=== PATIENT | female | born 1995 | race Two or more races ===

== ENCOUNTER 2016-06-16 19:14 | Outpatient (CLI) | payer OTHER ==
[~2016-06-16] VITALS: Ht 152.4 cm; Wt 80.9 kg
== END 2016-06-16 20:05 | disposition home or self-care (01) ==
LOC: LDOP 19:14
PROVIDERS: ATTEND Obstetrics & Gynecology
DX: O46.93 Antepartum hemorrhage, unspecified, third trimester (principal); O62.9 Abnormality of forces of labor, unspecified; Z3A.39 39 weeks gestation of pregnancy
CPT/HCPCS: 59025; 99201; G0463

== ENCOUNTER → 2016-07-02 | Outpatient (CLI) | payer OTHER ==
[~2016-07-02] MED LIST: DOCU-30 PO; IBUP-1222 PO; OXYC-302 PO
== END | disposition home or self-care (01) ==
LOC: WOUND 13:00
PROVIDERS: ATTEND Internal Medicine
DX: T81.31XD Disruption of external operation (surgical) wound, not elsewhere classified, subsequent encounter (principal); Y83.8 Other surgical procedures as the cause of abnormal reaction of the patient, or of later complication, without mention of misadventure at the time of the procedure
CPT/HCPCS: 99215

== ENCOUNTER → 2016-07-16 | Outpatient (CLI) | payer OTHER | END | disposition home or self-care (01) | LOC: WOUND 08:30 | PROVIDERS: ATTEND Internal Medicine | DX: T81.31XD Disruption of external operation (surgical) wound, not elsewhere classified, subsequent encounter (principal); Y83.8 Other surgical procedures as the cause of abnormal reaction of the patient, or of later complication, without mention of misadventure at the time of the procedure | CPT/HCPCS: 99213 ==

== ENCOUNTER → 2016-07-23 | Outpatient (CLI) | payer OTHER | LOC: WOUND 08:55 | PROVIDERS: ATTEND Internal Medicine | DX: O90.0 Disruption of cesarean delivery wound (principal); T81.31XD Disruption of external operation (surgical) wound, not elsewhere classified, subsequent encounter; Y83.8 Other surgical procedures as the cause of abnormal reaction of the patient, or of later complication, without mention of misadventure at the time of the procedure | CPT/HCPCS: 97597 ==

== ENCOUNTER 2017-06-16 06:02 | Inpatient (IN) | payer OTHER ==
[~2017-06-16] VITALS: Ht 152.4 cm; Wt 81.0 kg
[~2017-06-16 06:02] MED LIST changes: +DOCU-131 PO; -DOCU-30 PO
[2017-06-16] MEDS ORDERED: NEWBORN KIT ONE (06:05)
[2017-06-16] MEDS ORDERED: SODIUM CITRATE/CITRIC ACID 30 ML UDC ONE (06:06)
[2017-06-16] MEDS ORDERED: METOCLOPRAMIDE 5 MG/ML, 2ML ONE (06:06)
[2017-06-16] MEDS: LACTATED RINGERS 1,000 ML IV SCH ×10 (06:30→22:30)
[2017-06-16] MEDS ORDERED: METOCLOPRAMIDE 5 MG/ML, 2ML IV ONE (06:30)
[2017-06-16] MEDS ORDERED: LACTATED RINGERS 1,000 ML IVBOLUS ONE (06:30)
[2017-06-16] MEDS ORDERED: SODIUM CITRATE/CITRIC ACID 30 ML UDC PO ONE (06:30)
[2017-06-16] MEDS ORDERED: KETOROLAC 30 MG/1 ML ONE (07:15)
[2017-06-16] MEDS ORDERED: CEFAZOLIN 1,000 MG ONE (07:15)
[2017-06-16] MEDS ORDERED: DEXAMETHASONE 4 MG/ML, 1ML ONE (07:15)
[2017-06-16] MEDS ORDERED: OXYTOCIN 10 UNITS/ML, 1ML ONE (07:15)
[2017-06-16] MEDS ORDERED: FENTANYL PF 100 MCG/2ML ONE (07:15)
[2017-06-16] MEDS ORDERED: EPHEDRINE 50 MG/ML, 1ML ONE (07:15)
[2017-06-16] MEDS ORDERED: ONDANSETRON 2MG/ML, 2ML ONE (07:15)
[2017-06-16] MEDS ORDERED: PHENYLEPHRINE 10 MG/ML ONE (07:15)
[2017-06-16 07:18] LABS: BASOPHILS # (AUTO) 0.03 x10^3/uL (0-0.1); BASOPHILS % (AUTO) 0 % (0-1); EOSINOPHILS # (AUTO) 0.17 x10^3/uL (0-0.4); EOSINOPHILS % (AUTO) 2 % (1-7); LYMPHOCYTES # (AUTO) 2.76 x10^3/uL (1-3.4); LYMPHOCYTES % (AUTO) 30 % (22-44); MD SCAN; MEAN CORPUSCULAR HEMOGLOBIN 26.9 pg (27.0-34.8); MEAN CORPUSCULAR HGB CONC 33.5 g/dL (32.4-35.8); MEAN CORPUSCULAR VOLUME 80.4 fL (80-100); MEAN PLATELET VOLUME 10.1 fL (7.4-10.4); MONOCYTES # (AUTO) 0.63 x10^3/uL (0.2-0.8); MONOCYTES % (AUTO) 7 % (2-9); NEUTROPHILS # (AUTO) 5.61 x10^3/uL (1.8-6.8); NEUTROPHILS % (AUTO) 61 % (42-75); PLATELET COUNT 159 x10^3/uL (130-400); RED CELL DISTRIBUTION WIDTH 17.2 % (9.6-15.2)
[2017-06-16] MEDS ORDERED: EPHEDRINE 50 MG/ML, 1ML IVPush PRN (07:30)
[2017-06-16] MEDS ORDERED: FENTANYL PF 100 MCG/2ML IV PRN (07:30)
[2017-06-16] MEDS ORDERED: OXYcodone 5 MG/5 ML ORAL.SOL UDC PO PRN (07:30)
[2017-06-16] MEDS ORDERED: ALBUTEROL SULFATE 2.5 MG/3 ML NPPB PRN (07:30)
[2017-06-16] MEDS ORDERED: HYDROcodone/APAP 7.5-325MG/15ML UDC PO PRN (07:30)
[2017-06-16] MEDS ORDERED: MEPERIDINE/PF 25MG/0.5ML IVPush PRN (07:30)
[2017-06-16] MEDS ORDERED: PROMETHAZINE 25 MG/ML, 1ML IV PRN (07:30)
[2017-06-16] MEDS ORDERED: ONDANSETRON 2MG/ML, 2ML IVPush PRN (07:30)
[2017-06-16] MEDS ORDERED: HYDROmorphone 1 MG/ML, 1ML IV PRN (07:30)
[2017-06-16] MEDS ORDERED: LABETALOL 5MG/ML, 20ML IV PRN (07:30)
[2017-06-16] MEDS ORDERED: hydrALAzine 20 MG/ML, 1ML IV PRN (07:30)
[2017-06-16] MEDS: OXYTOCIN 30U/ 0.9% NaCL 500ML 500 ML IV SCH ×4 (09:18→20:12)
[2017-06-16] MEDS: KETOROLAC 30 MG/1 ML IV SCH ×3 (09:30→20:22)
[2017-06-16] MEDS ORDERED: ONDANSETRON 2MG/ML, 2ML IV PRN (09:30)
[2017-06-16] MEDS ORDERED: MISOPROSTOL 200 MCG TABLET PR PRN (09:30)
[2017-06-16] MEDS ORDERED: OXYcodone IR 5MG TABLET PO PRN (09:30)
[2017-06-16] MEDS: ACETAMINOPHEN 325 MG TABLET PO SCH ×4 (09:30→22:53)
[2017-06-16] MEDS ORDERED: METHYLERGONOVINE 0.2 MG/ML IM PRN (09:30)
[2017-06-16] MEDS ORDERED: BISACODYL 10 MG SUPP PR PRN (09:30)
[2017-06-16] MEDS ORDERED: CALCIUM CARBONATE 500 MG TAB.CHEW PO PRN (09:30)
[2017-06-16] MEDS ORDERED: morphine SULFATE 10 MG/ML, 1ML IVPush PRN ×2 (09:30)
[2017-06-16] MEDS ORDERED: SIMETHICONE 80 MG CHEW TAB PO PRN (09:30)
[2017-06-16] MEDS ORDERED: OXYcodone 5 MG/5 ML ORAL.SOL UDC ONE (10:21)
[2017-06-16] MEDS ORDERED: OXYTOCIN 30U/ 0.9% NaCL 500ML 500 ML ONE (10:23)
[2017-06-16 11:10] VITALS: BP 107/71
[2017-06-16 14:22] LABS: BASOPHILS # (AUTO) 0.02 x10^3/uL (0-0.1); BASOPHILS % (AUTO) 0 % (0-1); EOSINOPHILS # (AUTO) 0.01 x10^3/uL (0-0.4); EOSINOPHILS % (AUTO) 0 % (1-7); LYMPHOCYTES # (AUTO) 1.25 x10^3/uL (1-3.4); LYMPHOCYTES % (AUTO) 7 % (22-44); MD NO; MEAN CORPUSCULAR HGB CONC 33.6 g/dL (32.4-35.8); MEAN CORPUSCULAR VOLUME 80.4 fL (80-100); MEAN PLATELET VOLUME 10.2 fL (7.4-10.4); MONOCYTES # (AUTO) 0.39 x10^3/uL (0.2-0.8); MONOCYTES % (AUTO) 2 % (2-9); NEUTROPHILS # (AUTO) 15.21 x10^3/uL (1.8-6.8); NEUTROPHILS % (AUTO) 90 % (42-75); PLATELET COUNT 158 x10^3/uL (130-400); RED BLOOD COUNT 4.25 x10^6/uL (3.82-5.3); RED CELL DISTRIBUTION WIDTH 16.9 % (9.6-15.2)
[2017-06-16 14:34] VITALS: BP 101/66
[2017-06-16] MEDS: OXYcodone IR 5MG TABLET PO PRN (20:22)
[2017-06-16] MEDS: DOCUSATE 100 MG CAPSULE PO PRN (20:22)
[2017-06-16 20:30] VITALS: BP 98/57
[2017-06-17 00:05] VITALS: BP 97/68
[2017-06-17] MEDS: OXYcodone IR 5MG TABLET PO PRN (00:55)
[2017-06-17] MEDS: LACTATED RINGERS 1,000 ML IV SCH ×5 (01:18→09:18)
[2017-06-17] MEDS: OXYTOCIN 30U/ 0.9% NaCL 500ML 500 ML IV SCH ×2 (02:03→05:18)
[2017-06-17] MEDS: KETOROLAC 30 MG/1 ML IV SCH (02:14)
[2017-06-17] MEDS: ACETAMINOPHEN 325 MG TABLET PO SCH ×4 (05:08→22:53)
[2017-06-17 05:10] VITALS: BP 90/56
[2017-06-17] MEDS: PRENATAL VIT/IRON/FA 1 EACH TABLET PO SCH (07:18)
[2017-06-17] MEDS: DOCUSATE 100 MG CAPSULE PO PRN ×2 (07:18→22:53)
[2017-06-17 07:46] VITALS: BP 98/63
[2017-06-17] MEDS: IBUPROFEN 600 MG TABLET PO SCH ×3 (10:41→22:53)
[2017-06-17 20:00] VITALS: BP 102/60
[2017-06-18] MEDS: ACETAMINOPHEN 325 MG TABLET PO SCH ×2 (04:24→10:23)
[2017-06-18] MEDS: IBUPROFEN 600 MG TABLET PO SCH ×2 (04:24→10:23)
[2017-06-18 07:30] VITALS: BP 100/58
[2017-06-18] MEDS: DOCUSATE 100 MG CAPSULE PO PRN (10:23)
[2017-06-18] MEDS: PRENATAL VIT/IRON/FA 1 EACH TABLET PO SCH (10:23)
[2017-06-18] MEDS ORDERED: DOCU-131 PO (13:40)
[2017-06-18] MEDS ORDERED: IBUP-1222 PO (13:40)
[2017-06-18] MEDS ORDERED: OXYC-302 PO (13:40)
== END 2017-06-18 15:50 | disposition home or self-care (01) | DRG 766 ==
LOC: LDIP 06:02 → 2NW 10:30
PROVIDERS: ADMIT Obstetrics & Gynecology; ATTEND Obstetrics & Gynecology
PROC: 10D00Z1 Extraction of Products of Conception, Low, Open Approach (ICD-10-PCS; principal; 2017-06-16)
DX: O34.211 Maternal care for low transverse scar from previous cesarean delivery (principal); Z37.0 Single live birth; Z3A.39 39 weeks gestation of pregnancy
CPT/HCPCS: 36415; 85025; 86850; 86900; J0690; J1100; J1885; J2405; J3010; J2370; J2590; J2765; J7120